=== PATIENT | male | born 1980 | race Caucasian/White ===

== ENCOUNTER 2016-12-15 17:36 | Emergency (ER) | payer OTHER ==
[2016-12-15 17:42] VITALS: TEMP 97.5
--- NOTE | 2016-12-15 18:16 | EDPHY ---
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 Patient states they were doing training maneuvers he was handling fire hose at 80-90 psi , patient had the hose leaving against is left hip felt a tightness in his lower back unable to fully bend over. 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 Denies any bowel or bladder incontinence, intermittent right lower extremity paresthesia. Denies any other complaints REVIEW OF SYSTEMS: Constitutional: No fever, no chills. Eyes: No discharge. No blurred vision ENT: No sore throat. Cardiovascular: No chest pain, no palpitations. Respiratory: No cough, no shortness of breath. Gastrointestinal: No abdominal pain, no vomiting. Genitourinary: No hematuria. Musculoskeletal: Lower back pain with spasms, intermittent left lower extremity paresthesia Skin: No rashes. Neurological: No headache. Smoking Status: Never smoked Physical Exam: General Appearance: Alert, no distress. Eyes: Pupils equal and round no pallor or injection. ENT, Mouth: Mucous membranes moist. Respiratory: There are no retractions, lungs are clear to auscultation. Cardiovascular: Regular rate and rhythm. Gastrointestinal: Abdomen is soft and nontender, no masses, bowel sounds normal. Neurological: No focal deficits. Answering questions appropriately ambulatory with steady gait Skin: Warm and dry, no rashes. Musculoskeletal: Vertebral cervical spine nontender on palpation. Vertebral lumbar spine mild tenderness on palpation no obvious deformity, tenderness on palpation to bilateral sides of lumbar spine. Patient unable to bend over Extremities: symmetrical, full range of motion. Psychiatric: Patient is oriented X 3, acting appropriately Constitutional: Initial Vital Signs Temperature (C) 36.4 C 12/15/16 17:40 Heart Rate 76 12/15/16 17:40 Respiratory Rate 18 12/15/16 17:40 Blood Pressure 135/77 H 12/15/16 17:40 O2 Sat (%) 94 12/15/16 17:40 O2 Delivery Mode Room Air Allergies/Adverse Reactions: No Known Allergies Allergy (Unverified 12/15/16 20:16) Home Medications: Medication Instructions Recorded Diazepam [Valium 5 MG (*)] 5 mg PO BID PRN #10 tab 12/15/16 Medical Decision Making - Diagnostics Imaging Results: Imaging Impressions Lumbar Spine MRI 12/15/16 18:18 Impression: 1. Mild degenerative disk disease from L1-L2 through L5-S1 with small Schmorl's nodes at most levels. 2. However, no evidence of lumbar disk herniations, spinal canal stenosis, or neural foraminal stenosis. 3. No lumbar compression fractures or destructive osseous lesions. Findings and recommendations discussed with Emergency Department physician, Vianney Pisano NP at 1943 hours on December 15, 2016. Final report concurs with initial preliminary interpretation. ED Course/Re-evaluation: Discussed the plan of care: MRI of lumbar spine. Patient declines any medication at this time 1945; spoke with Dr. Smith, MRI negative for any acute findings no vertebral fracture no herniated disc 2010: Discussed MRI results with patient. Recommend light duty for patient to further evaluation with occupational medicine. Discharge home---> stable, discussed discharge instructions with patient Differential Diagnosis: Other differential diagnosis considered but not limited to lumbar vertebral fracture, herniated disc, bulging disc, and spinal cord stenosis - Data Points Medications Given: Discontinued Medications Diazepam (Valium 5 Mg Prepack#4) 1 btl TAKEHOME EDNOW ONE Stop: 12/15/16 20:18 Last Admin: 12/15/16 20:32 Dose: 1 btl Ibuprofen (Motrin) 600 mg PO EDNOW ONE Stop: 12/15/16 19:40 Last Admin: 12/15/16 19:48 Dose: 600 mg Departure - Departure Disposition: Home, Routine, Self-Care Clinical Impression: Back pain at L4-L5 level, Muscle spasm Condition: Good Instructions: Diazepam (By mouth), Acute Low Back Pain (ED), Lumbar Radiculopathy (ED), Muscle Spasm (ED) Additional Instructions: 1. Recommend being on light duty until further evaluation with occupational medicine 2. Ibuprofen 608 100 mg every 6-8 hours as needed 3. Heating pad hot tub soaks may be beneficial 4. I have given you a prescription for Valium take as needed Referrals: NONE *PRIMARY CARE P,. [Primary Care Provider] - As per Instructions [facility],. [Clinic] - As per Instructions Stand Alone Forms: Work Limited Duty Prescriptions: Diazepam [Valium 5 MG (*)] 5 mg PO BID PRN #10 tab PRN Reason: Spasms
[2016-12-15] MEDS ORDERED: IBUPROFEN 600 MG TAB PO ONE (19:39)
[2016-12-15] MEDS ORDERED: DIAZEPAM 5 MG PREPACK#4 BTL TAKEHOME ONE (20:17)
[2016-12-15 20:45] VITALS: BP 131/99; PULSE 64; RESP 16; O2SAT 98
== END 2016-12-15 20:44 | disposition home or self-care (01) ==
DX: M62.830 Muscle spasm of back (principal)